=== PATIENT | male | born 1955 | race Caucasian/White ===

== ENCOUNTER 2023-08-28 09:46 | Day surgery (SDC) | payer OTHER, BC ==
[2023-08-25 13:33] VITALS: BMI 25.8
[2023-08-28] MEDS ORDERED: BUPIVACAINE HCL/PF 0.25% (2.5MG/ML) 10 ML VIAL ONE (10:34)
[2023-08-28] MEDS ORDERED: LIDOCAINE HCL 1%, 10 MG/ML (20ML VIAL) ONE (10:34)
[2023-08-28] MEDS ORDERED: MIDAZOLAM HCL 2 MG/2 ML SINGLE DOSE VIAL ONE (11:09)
[2023-08-28] MEDS ORDERED: PROPOFOL 40 ML ONE (11:09)
[2023-08-28] MEDS ORDERED: ceFAZolin SODIUM 1 GM VIAL ONE (12:43)
[2023-08-28] MEDS ORDERED: KETOROLAC TROMETHAMINE 30 MG/1 ML VIAL ONE (12:43)
[2023-08-28] MEDS ORDERED: DEXAMETHASONE SOD PHOSPHATE 4 MG/1 ML VIAL ONE (12:43)
[2023-08-28] MEDS ORDERED: ONDANSETRON 4 MG/2 ML VIAL ONE (12:43)
[2023-08-28 13:38] VITALS: RESP 16; TEMP 97.8
[2023-08-28 13:57] VITALS: BP 139/67; PULSE 72
== END 2023-08-28 14:11 | disposition home or self-care (01) ==
LOC: FASU 09:46
PROVIDERS: ATTEND Orthopaedic Surgery
PROC: 0LN80ZZ Release Left Hand Tendon, Open Approach (ICD-10-PCS; principal; 2023-08-28 12:54)
DX: M65.332 Trigger finger, left middle finger (principal)
CPT/HCPCS: 88304-TC